=== PATIENT | female | born 1990 | race Two or more races ===

== ENCOUNTER 2017-07-24 10:28 | Outpatient (CLI) | payer OTHER ==
[~2017-07-24 10:28] MED LIST: AMOX TR-K CLV 51 TAB; BACTROBAN OINT22 GM TP; ORPH100T; SEPTRA DS TABLE1 TAB PO
== END 2017-07-24 10:34 | disposition home or self-care (01) ==
LOC: SONOGRAMA 10:28
DX: Z34.02 Encounter for supervision of normal first pregnancy, second trimester (principal)

== ENCOUNTER 2017-09-23 00:27 | Outpatient (CLI) | payer OTHER | END 2017-09-23 11:31 | disposition home or self-care (01) | LOC: OBS/DEL 00:27 | DX: O26.893 Other specified pregnancy related conditions, third trimester (principal); Z04.3 Encounter for examination and observation following other accident; W18.39XA Other fall on same level, initial encounter; Y93.89 Activity, other specified; Y92.89 Other specified places as the place of occurrence of the external cause; Y99.8 Other external cause status ==

== ENCOUNTER 2017-09-26 12:53 | Outpatient (CLI) | payer OTHER | END 2017-09-26 14:10 | disposition home or self-care (01) | LOC: NST 12:53 | DX: O09.92 Supervision of high risk pregnancy, unspecified, second trimester (principal); Z34.02 Encounter for supervision of normal first pregnancy, second trimester ==

== ENCOUNTER 2017-10-28 15:07 | Inpatient (IN) | payer OTHER ==
[~2017-10-28] VITALS: Ht 157.5 cm; Wt 70.8 kg
[2017-10-28] MEDS ORDERED: OBSTETRIX DHA1 EACH PO (17:28)
[2017-10-28] MEDS ORDERED: FOLIC ACID0.4 MG PO (17:29)
== END 2017-10-31 13:23 | DRG 775 ==
LOC: LDR 15:07 → OB/GYN 10-29 23:08
PROC: 4A1HXCZ Monitoring of Products of Conception, Cardiac Rate, External Approach (ICD-10-PCS; 2017-10-28)
PROC: 0UQGXZZ Repair Vagina, External Approach (ICD-10-PCS; principal; 2017-10-29)
PROC: 10E0XZZ Delivery of Products of Conception, External Approach (ICD-10-PCS; 2017-10-29)
PROC: 4A033R1 Measurement of Arterial Saturation, Peripheral, Percutaneous Approach (ICD-10-PCS; 2017-10-29)
DX: O71.4 Obstetric high vaginal laceration alone (principal); Z3A.39 39 weeks gestation of pregnancy; Z37.0 Single live birth

== ENCOUNTER 2020-07-18 08:00 | Outpatient (CLI) | payer OTHER ==
[~2020-07-18 08:00] MED LIST changes: +FOLIC ACID0.4 MG PO; +OBSTETRIX DHA1 EACH PO
== END 2020-07-18 08:30 | disposition home or self-care (01) ==
LOC: PPH VACUNA 08:00
DX: Z23 Encounter for immunization (principal)

== ENCOUNTER 2020-08-07 08:00 | Outpatient (CLI) | payer OTHER | END 2020-08-07 08:30 | disposition home or self-care (01) | LOC: PPH VACUNA 08:00 | DX: Z23 Encounter for immunization (principal) ==

== ENCOUNTER 2021-07-19 08:01 | Emergency (ER) | payer OTHER ==
[~2021-07-19] VITALS: Ht 157.5 cm; Wt 65.3 kg
== END 2021-07-19 17:56 | disposition home or self-care (01) ==
LOC: ER 08:01
DX: R10.31 Right lower quadrant pain (principal)

== ENCOUNTER 2023-05-28 08:10 | Emergency (ER) | payer OTHER ==
[~2023-05-28] VITALS: Ht 157.5 cm; Wt 63.5 kg
[2023-05-28] MEDS ORDERED: HYOSCYAMINE SULFATE 0.125 MG TAB.SUBL SL ONE (08:45)
[2023-05-28 09:25] LABS: HEMOGLOBIN 13.1 g/dL (12.0-15.00); MEAN CELL VOLUME 92.6 fL (80.00-100.00); MEAN CORPUSCULAR HGB CONC 33.5 g/dl (32.0-36.0); PLATELET COUNT 284 K/uL (150-450); RED BLOOD COUNT 4.21 M/uL (4.00-6.00); RED CELL DISTRIBUTION WIDTH 12.9 % (11.5-14.5)
[2023-05-28 09:45] LABS: URINE APPEARANCE Clear; URINE BILIRRUBIN Negative (NEGATIVE); URINE BLOOD Negative; URINE COLOR Yellow; URINE GLUCOSE Negative (NEGATIVE); URINE LEUKOCYTE Trace; URINE NITRATE Negative; URINE PROTEIN Negative (NEGATIVE); URINE UROBILINOGEN 0.2 E.U./dl
[2023-05-28 09:47] LABS: ALBUMIN 3.8 gm/dL (3.4-5.0); BILIRUBIN TOTAL 0.8 mg/dL (0.3-1.2); CALCIUM 8.9 mg/dL (8.5-10.1); CREATININE SERUM 0.88 mg/dL (0.55-1.02); GFR 74.46; GLOBULINA 3.6 G/DL (2.4-3.5); POTASSIUM 4.17 mEq/L (3.5-5.1); TOTAL PROTEIN 7.4 gm/dL (6.4-8.2)
[2023-05-28 09:50] LABS: URINE BACTERIA 1440.1 uL (0.0-1933); URINE WBC 18.3 uL (0.0-23.2)
== END 2023-05-28 16:31 | disposition home or self-care (01) ==
LOC: ER 08:11
PROVIDERS: General Practice
DX: K59.00 Constipation, unspecified (principal)

== ENCOUNTER 2023-12-02 21:16 | Emergency (ER) | payer OTHER ==
[~2023-12-02] VITALS: Ht 162.6 cm; Wt 63.5 kg
[2023-12-02 21:34] VITALS: BP 122/73; O2SAT 100
[2023-12-02] MEDS ORDERED: KETOROLAC TROMETHAMINE 60 MG VIAL IM STA (21:56)
== END 2023-12-02 22:13 | disposition home or self-care (01) ==
LOC: ER 21:17
DX: M94.0 Chondrocostal junction syndrome [Tietze] (principal); R42 Dizziness and giddiness